=== PATIENT | male | born 1985 | race Two or more races ===

== ENCOUNTER 2019-11-16 04:41 | Emergency (ER) | payer MEDICAID ==
[~2019-11-16] VITALS: Ht 185.4 cm; Wt 84.3 kg
[~2019-11-16 04:41] MED LIST: IBUP-1986 PO; NO HOME MEDS; TRAM200T4 PO
[2019-11-16 04:46] VITALS: BP 106/83
[2019-11-16] MEDS ORDERED: SUL50S RIGHTEYE (05:14)
== END 2019-11-16 05:22 | disposition home or self-care (01) ==
LOC: ER 04:42
DX: H10.9 Unspecified conjunctivitis (principal); F12.90 Cannabis use, unspecified, uncomplicated; F15.90 Other stimulant use, unspecified, uncomplicated; Z72.89 Other problems related to lifestyle; Z60.2 Problems related to living alone; Z59.0 Homelessness; Z79.899 Other long term (current) drug therapy
CPT/HCPCS: 99283

== ENCOUNTER 2020-02-02 14:16 | Emergency (ER) | payer MEDICAID ==
[~2020-02-02] VITALS: Ht 185.4 cm; Wt 78.0 kg
[2020-02-02 14:20] VITALS: BP 122/53
[2020-02-02] MEDS ORDERED: CEPH-572 PO (15:22)
[2020-02-02] MEDS ORDERED: SULF1TAB49 PO (15:22)
== END 2020-02-02 15:40 | disposition home or self-care (01) ==
LOC: ER 14:16
DX: L02.415 Cutaneous abscess of right lower limb (principal); L08.9 Local infection of the skin and subcutaneous tissue, unspecified; F12.90 Cannabis use, unspecified, uncomplicated; F15.90 Other stimulant use, unspecified, uncomplicated; Z60.2 Problems related to living alone; Z59.0 Homelessness; Z72.89 Other problems related to lifestyle; Z79.899 Other long term (current) drug therapy
CPT/HCPCS: 87070; 87077; 87186; 99283

== ENCOUNTER 2020-04-19 17:22 | Emergency (ER) | payer MEDICAID ==
[~2020-04-19] VITALS: Ht 185.4 cm; Wt 86.4 kg
[2020-04-19 18:40] LABS: BASOPHILS % (AUTO) 0.3 % (0-1); EOSINOPHILS # (AUTO) 0.1 X10'3 (0-0.9); HEMATOCRIT 40.1 % (42.0-52.0); HEMOGLOBIN 13.6 g/dl (14.0-17.9); LYMPHOCYTES # (AUTO) 1.1 X10'3 (1.1-4.8); LYMPHOCYTES % (AUTO) 7.8 % (21-51); MEAN CORPUSCULAR HEMOGLOBIN 30.1 PG (27.0-31.0); MEAN CORPUSCULAR HGB CONC 33.8 g/dL (33.0-36.5); MEAN PLATELET VOLUME 9.5 FL (7.4-10.4); NEUTROPHILS # (AUTO) 12.2 X10'3 (1.8-7.7); NEUTROPHILS % (AUTO) 83.9 % (42-75); PLATELET COUNT 215 X10'3 (140-440); RED BLOOD COUNT 4.51 X10'6 (4.70-6.10); RED CELL DISTRIBUTION WIDTH 13.9 % (11.5-14.5); WHITE BLOOD COUNT 14.5 X10'3 (4.5-11.0)
[2020-04-19 18:59] LABS: ALANINE AMINOTRANSFERASE 52 U/L (12-78); ALBUMIN/GLOBULIN RATIO 1.1 (1.1-1.5); ALKALINE PHOSPHATASE 106 IU/L (46-116); ANION GAP 11 (8-16); ASPARTATE AMINO TRANSFERASE 54 U/L (10-37); BLOOD UREA NITROGEN 23 MG/DL (7-18); BUN/CREATININE RATIO 20.7 (5.4-32.0); C-REACTIVE PROTEIN 3.17 MG/DL (0.0-0.5); CALCIUM 8.9 MG/DL (8.5-10.1); CHLORIDE 100 MMOL/L (99-107); CREATININE 1.11 MG/DL (0.60-1.10); GLUCOSE 150 MG/DL (70-104); POTASSIUM 3.6 MMOL/L (3.5-5.1); SODIUM 137 MMOL/L (135-145); TOTAL CARBON DIOXIDE 25.7 MMOL/L (24-32); TOTAL PROTEIN 7.8 G/DL (6.4-8.2); eGFR 76 ML/MIN
[2020-04-19] MEDS ORDERED: vancomycin/NS 1 GM ADD-VANTAGE 250 ML IV ONE (20:25)
[2020-04-19] MEDS ORDERED: CEPH250T PO (20:27)
[2020-04-19] MEDS ORDERED: SULF1TAB49 PO (20:27)
[2020-04-19] MEDS ORDERED: ketorolac tromethamine 15mg/ml inj. IV ONE (21:10)
[2020-04-19 23:16] VITALS: BP 110/67
== END 2020-04-19 23:19 | disposition home or self-care (01) ==
LOC: ER 17:22
DX: L03.114 Cellulitis of left upper limb (principal); L03.113 Cellulitis of right upper limb; M25.571 Pain in right ankle and joints of right foot; M25.572 Pain in left ankle and joints of left foot; F17.200 Nicotine dependence, unspecified, uncomplicated; F12.90 Cannabis use, unspecified, uncomplicated; F15.90 Other stimulant use, unspecified, uncomplicated; Z72.89 Other problems related to lifestyle; Z60.2 Problems related to living alone; Z59.0 Homelessness; Z79.2 Long term (current) use of antibiotics; Z79.899 Other long term (current) drug therapy
CPT/HCPCS: 36415; 73600; 73620; 80053; 85025; 85651; 86140; 96365; 96375; 99284; J1885; J3370

== ENCOUNTER 2020-09-05 19:26 | Emergency (ER) | payer MEDICAID ==
[~2020-09-05] VITALS: Ht 185.4 cm; Wt 86.4 kg
[2020-09-05 20:49] VITALS: BP 131/80
--- NOTE | 2020-09-05 21:01 | NUR ---
AFTER EXPLAINING WAIT TIME, PT STATES HE IS GOING TO GO HOME
== END 2020-09-05 23:11 | disposition left against medical advice (07) ==
LOC: ER 19:27
DX: L02.818 Cutaneous abscess of other sites (principal); Z53.21 Procedure and treatment not carried out due to patient leaving prior to being seen by health care provider

== ENCOUNTER 2020-12-16 20:35 | Emergency (ER) | payer MEDICAID ==
[~2020-12-16] VITALS: Ht 172.7 cm; Wt 70.5 kg
[2020-12-16 20:45] VITALS: BP 131/93
[2020-12-16] MEDS ORDERED: LIDOcaine 1% W/epiNEPHrine 1:100,000 20ml vial SQ ONE (20:55)
[2020-12-16] MEDS ORDERED: AMOX-115 PO (21:13)
== END 2020-12-16 21:30 ==
LOC: ER 20:35
DX: S71.111A Laceration without foreign body, right thigh, initial encounter (principal); S81.831A Puncture wound without foreign body, right lower leg, initial encounter; S81.832A Puncture wound without foreign body, left lower leg, initial encounter; S80.12XA Contusion of left lower leg, initial encounter; F12.90 Cannabis use, unspecified, uncomplicated; F15.90 Other stimulant use, unspecified, uncomplicated; Z59.0 Homelessness; Z79.899 Other long term (current) drug therapy; W54.0XXA Bitten by dog, initial encounter; Y93.89 Activity, other specified; Y92.89 Other specified places as the place of occurrence of the external cause; Y99.8 Other external cause status
CPT/HCPCS: 12001; 12002; 99283

== ENCOUNTER 2022-01-14 20:29 | Emergency (ER) | payer SELFPAY | END 2022-01-14 22:35 | disposition left against medical advice (07) | LOC: ER 20:29 | DX: M79.673 Pain in unspecified foot (principal); Z53.21 Procedure and treatment not carried out due to patient leaving prior to being seen by health care provider ==

== ENCOUNTER 2022-12-15 08:17 | Emergency (ER) | payer SELFPAY ==
[~2022-12-15] VITALS: Ht 188 cm; Wt 81.8 kg
[~2022-12-15 08:17] MED LIST changes: +IBUP-1985 PO
[2022-12-15 08:22] VITALS: TEMP 96.8
--- NOTE | 2022-12-15 08:45 | NUR ---
Tried to meet with patient in regards to substance use and patient unable to have conversation. I will try again.
[2022-12-15 09:05] LABS: BASOPHILS # (AUTO) 0.1 X10'3 (0-0.2); BASOPHILS % (AUTO) 0.5 % (0-1); EOSINOPHILS # (AUTO) 0.4 X10'3 (0-0.9); EOSINOPHILS % (AUTO) 2.6 % (0-6); HEMATOCRIT 44.2 % (42.0-52.0); HEMOGLOBIN 14.5 g/dl (14.0-17.9); LYMPHOCYTES # (AUTO) 1.7 X10'3 (1.1-4.8); LYMPHOCYTES % (AUTO) 12.6 % (21-51); MEAN CORPUSCULAR HEMOGLOBIN 28.8 PG (27.0-31.0); MEAN CORPUSCULAR HGB CONC 32.8 g/dL (33.0-36.5); MEAN CORPUSCULAR VOLUME 87.9 FL (78-98); MEAN PLATELET VOLUME 9.5 FL (7.4-10.4); MONOCYTES % (AUTO) 7.5 % (2-12); NEUTROPHILS # (AUTO) 10.7 X10'3 (1.8-7.7); NEUTROPHILS % (AUTO) 76.8 % (42-75); PLATELET COUNT 250 X10'3 (140-440); RED BLOOD COUNT 5.03 X10'6 (4.70-6.10); WHITE BLOOD COUNT 13.9 X10'3 (4.5-11.0)
[2022-12-15 09:20] LABS: ALANINE AMINOTRANSFERASE 32 U/L (12-78); ALBUMIN 3.5 G/DL (3.4-5.0); ALBUMIN/GLOBULIN RATIO 0.9 (1.1-1.5); ALKALINE PHOSPHATASE 138 IU/L (46-116); ANION GAP 5 (8-16); ASPARTATE AMINO TRANSFERASE 28 U/L (10-37); BILIRUBIN,TOTAL 0.7 MG/DL (0.1-1.0); BLOOD UREA NITROGEN 12 MG/DL (7-18); BUN/CREATININE RATIO 11.8 (10.0-20.0); CALCIUM 9.3 MG/DL (8.5-10.1); CHLORIDE 104 MMOL/L (99-107); CREATININE 1.02 MG/DL (0.60-1.10); GLUCOSE 84 MG/DL (70-104); POTASSIUM 4.5 MMOL/L (3.5-5.1); SODIUM 141 MMOL/L (135-145); TOTAL CARBON DIOXIDE 32.5 MMOL/L (24-32); TOTAL PROTEIN 7.5 G/DL (6.4-8.2); eGFR 82 ML/MIN
[2022-12-15 09:34] LABS: ETHANOL < 10 MG/DL (<10)
[2022-12-15 10:12] VITALS: BP 123/79; PULSE 53; RESP 20; O2SAT 96
== END 2022-12-15 10:43 | disposition home or self-care (01) ==
LOC: ER 08:17
DX: T40.2X1A Poisoning by other opioids, accidental (unintentional), initial encounter (principal); F12.10 Cannabis abuse, uncomplicated; F15.10 Other stimulant abuse, uncomplicated; Z87.81 Personal history of (healed) traumatic fracture; Z79.899 Other long term (current) drug therapy; Y92.89 Other specified places as the place of occurrence of the external cause
CPT/HCPCS: 36415; 80053; 80320; 85025; 99283; J7030

== ENCOUNTER 2023-01-21 20:21 | Emergency (ER) | payer MEDICAID | END 2023-01-21 23:47 | disposition left against medical advice (07) | LOC: ER 20:22 | DX: Z00.00 Encounter for general adult medical examination without abnormal findings (principal); Z53.21 Procedure and treatment not carried out due to patient leaving prior to being seen by health care provider ==

== ENCOUNTER 2023-07-09 14:09 | Emergency (ER) | payer MEDICAID ==
[~2023-07-09] VITALS: Ht 188 cm; Wt 86.4 kg
[2023-07-09 14:29] VITALS: BP 104/53; PULSE 101; RESP 18; TEMP 98.3; O2SAT 95
[2023-07-09] MEDS: loperamide 2mg capsule PO ONE (15:32)
== END 2023-07-09 16:07 | disposition home or self-care (01) ==
LOC: ER 14:09
DX: R19.7 Diarrhea, unspecified (principal); R11.0 Nausea; F15.90 Other stimulant use, unspecified, uncomplicated; F12.90 Cannabis use, unspecified, uncomplicated; Z79.1 Long term (current) use of non-steroidal anti-inflammatories (NSAID); Z79.899 Other long term (current) drug therapy; Y09 Assault by unspecified means
CPT/HCPCS: 99282

== ENCOUNTER 2023-09-09 20:28 | Emergency (ER) | payer MEDICAID ==
[~2023-09-09] VITALS: Ht 185.4 cm; Wt 89.4 kg
[2023-09-09 20:42] VITALS: BP 125/78; PULSE 82; RESP 16; O2SAT 97
[2023-09-09] MEDS ORDERED: SULF1TAB45 PO (21:23)
[2023-09-09] MEDS ORDERED: AMOX-117 PO (21:23)
[2023-09-09] MEDS: sulfamethoxazole/trimethoprim DS (800/160mg) tablet PO ONE (21:29)
[2023-09-09] MEDS: amox tr/potassium clavulanate 875/125mg TAB PO ONE (21:29)
[2023-09-09 21:35] VITALS: TEMP 98.7
== END 2023-09-09 21:36 | disposition home or self-care (01) ==
LOC: ER 20:29
DX: K04.7 Periapical abscess without sinus (principal); K13.0 Diseases of lips; F12.90 Cannabis use, unspecified, uncomplicated; F15.90 Other stimulant use, unspecified, uncomplicated; Z79.2 Long term (current) use of antibiotics; Z79.1 Long term (current) use of non-steroidal anti-inflammatories (NSAID); Z79.899 Other long term (current) drug therapy
CPT/HCPCS: 99283

== ENCOUNTER 2024-05-12 03:27 | Emergency (ER) | payer MEDICAID ==
[~2024-05-12] VITALS: Ht 188 cm; Wt 84.3 kg
[2024-05-12 03:29] VITALS: BP 125/77; PULSE 97; RESP 18; O2SAT 98
[2024-05-12] MEDS ORDERED: METR-159 PO (03:52)
[2024-05-12] MEDS ORDERED: CEPH-585 PO (03:52)
[2024-05-12] MEDS ORDERED: DOCU-150 PO (03:54)
[2024-05-12] MEDS ORDERED: HYDR-3965 PO (03:54)
[2024-05-12] MEDS: cephalexin 250mg capsule PO ONE (04:07)
[2024-05-12] MEDS: metroNIDAZOLE 500mg tablet PO ONE (04:07)
[2024-05-12 04:12] VITALS: TEMP 98.7
== END 2024-05-12 04:17 | disposition home or self-care (01) ==
LOC: ER 03:28
DX: K61.1 Rectal abscess (principal); F12.90 Cannabis use, unspecified, uncomplicated; F15.90 Other stimulant use, unspecified, uncomplicated; Z59.00 Homelessness unspecified; Z56.0 Unemployment, unspecified; Z72.89 Other problems related to lifestyle; Z60.2 Problems related to living alone; Z79.1 Long term (current) use of non-steroidal anti-inflammatories (NSAID)
CPT/HCPCS: 99283; A6213

== ENCOUNTER 2024-06-13 15:22 | Emergency (ER) | payer MEDICAID ==
[~2024-06-13] VITALS: Ht 185.4 cm; Wt 81.8 kg
[~2024-06-13 15:22] MED LIST changes: +DOCU-150 PO; +HYDR-3965 PO
[2024-06-13 15:36] VITALS: BP 147/98; PULSE 82; RESP 18; TEMP 97.8; O2SAT 98
[2024-06-13] MEDS: sulfamethoxazole/trimethoprim DS (800/160mg) tablet PO ONE (16:28)
[2024-06-13] MEDS: CefTRIAXone 1000mg IM Kit (w/lidocaine diluent) IM ONE (16:29)
== END 2024-06-13 16:47 | disposition left against medical advice (07) ==
LOC: ER 15:23
DX: L03.114 Cellulitis of left upper limb (principal); L03.115 Cellulitis of right lower limb; Z59.00 Homelessness unspecified
CPT/HCPCS: 99283

== ENCOUNTER 2024-11-29 02:49 | Emergency (ER) | payer MEDICAID ==
[~2024-11-29] VITALS: Ht 185.4 cm; Wt 86.4 kg
[~2024-11-29 02:49] MED LIST changes: -HYDR-3965 PO
[2024-11-29 03:00] VITALS: BP 137/77; PULSE 83; RESP 16; TEMP 97.6; O2SAT 98
--- NOTE | 2024-11-29 03:14 | Physician Documentation ---
History of Present Illness ~ General Chief Complaint: See Chief Complaint Stated Complaint: "SOMETHING WIGGLING IN BRAIN" Time Seen by MD: 03:14 Primary Medical Doctor: LAWRENCE JRODAN History of Present Illness Initial Comments Patient presents to the emergency room for concerns for chronic right elbow pain. He is able to move it freely however it clicks. No injury reported. He also thinks that he may have felt some degree of an animal in his skull. No symptoms now Medication Reconciliation Allergies: Coded Allergies: No Known Allergies (Unverified , 07/09/23) Scheduled Docusate Sodium (Colace), 1 CAP PO Q12H Ibuprofen (Ibuprofen), 1 TAB PO Q8H Ibuprofen (Ibuprofen), 1 TAB PO Q8H Tramadol HCl (Ultram ER), 1 TABLET PO DAILY Miscellaneous Medications Home Med List (No Home Medications), (Reported) Past Medical History Past Medical History: Extremity Fracture Past Surgical History: no surgical history Alcohol Use: Occasionally Drug Use: marijuana, methamphetamine Lives with: Alone Lives In: Homeless Occupation: unemployed Review of Systems ROS All review of systems negative except as per HPI Physical Exam Physical Exam Vital Signs: Temperature: 97.6, Heart Rate: 83, Respiratory Rate: 16, BP: 137/77, Pulse Oximetry: 98, Weight: 86.360 Oxygen Flow Rate: 0 Physical Exam General: Patient is awake, alert, oriented x4 in no acute distress Head: Normocephalic and atraumatic. Eyes: Conjunctival normal. EOMI. PERRL. ENT: Mucous membranes moist. Tympanic membranes clear Neck: Supple, trachea is midline. Chest: Clear to auscultation bilaterally without rales, rhonchi, or wheezes. There is no accessory muscle use or retractions. Cardiac: RRR without murmurs, gallops, or rubs. Extremities: Normal strength. Normal range of motion. No deformities or edema. Patient able to make his right able click with Alvarez extension. Otherwise normal Progress Results/Orders Results/Orders Vital Signs 11/29/24 03:00 Temp 97.6 Pulse 83 Resp 16 B/P (MAP) 137/77 Pulse Ox 98 O2 Flow Rate 0 Medical Decision Making Findings Patient presents to the emergency room with chronic elbow dysfunction as well as some vague description of what he believes to be a worm in his head. I do not feel emergent imaging is necessary and I do not feel patient requires labs. The need to follow up with his doctor discussed. Departure Disposition: HOME / SELF CARE / HOMELESS Impression: Primary Impression: Elbow pain, chronic Condition: Stable Discharge Instructions: General Discharge Instructions Additional Instructions: Follow up with your doctor as you may need physical therapy referral Referrals: NO PRIMARY CARE PROVIDER (PCP) Education Educated: Patient Educated regarding: diagnosis, treatment, need for follow up Signature Scribe Signature: No scribe Attestation: The note accurately reflects work and decisions made by me.Bjorn Knapp MD 11/29/24 03:21 BJORN KNAPP MD Nov 29, 2024 03:14
[2024-11-29] MEDS: ibuprofen tablet 400 MG TABLET PO ONE (03:28)
== END 2024-11-29 03:30 | disposition home or self-care (01) ==
LOC: ER 02:50
DX: G89.29 Other chronic pain (principal); M25.521 Pain in right elbow; F12.90 Cannabis use, unspecified, uncomplicated; F15.90 Other stimulant use, unspecified, uncomplicated; Z79.899 Other long term (current) drug therapy; Z56.0 Unemployment, unspecified; Z59.00 Homelessness unspecified; Z72.89 Other problems related to lifestyle; Z60.2 Problems related to living alone
CPT/HCPCS: 99282